=== PATIENT | male | born 1965 | race Caucasian/White ===

== ENCOUNTER 2017-09-15 22:38 | Observation (INO) | payer OTHER, MEDICAID ==
[~2017-09-15] VITALS: Ht 172.7 cm; Wt 77.5 kg
[~2017-09-15 22:38] MED LIST: ALBU8I INH; BENZ100 PO; CEFU1TAB43 PO; LISI10 PO; ZITHTAB6 PO
[2017-09-15 22:47] VITALS: BP 164/77; PULSE 68; RESP 20; TEMP 98.2; O2SAT 97
[2017-09-15] MEDS ORDERED: LISI10TA3 PO (22:49)
[2017-09-15] MEDS ORDERED: SODIUM CHLORIDE 0.9% FLUSH 10 ML FLUSH IVF PRN (23:15)
--- NOTE | 2017-09-15 23:29 | PD ---
HPI Chief Complaint: Chest Pain Time Seen by Provider: 23:06 Travel History International Travel<30 days: No Contact w/Intl Traveler<30days: No Traveled to known affect area: No History of Present Illness HPI 51 y/o male presents stating he has had chest pain intermittently over the past couple weeks. He denies any currently. He states he took a full aspirin today. He denies any other concurrent concerns. 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 He denies any prior routine cardiac workup. Quality is pressure. Severity is currently none. He denies specific modifying factors. He states when the episodes come they will get intense and got worse tonight. PFSH Past Medical History Cardiovascular Problems: No Diminished Hearing: No Genitourinary: No Hypertension: Yes Musculoskeletal: No Neurologic: No Reproductive: No Respiratory: Yes (PNEUMONIA THIS VISIT) Past Surgical History Eye Surgery: Yes (LASER SURGERY BILAT EYES) Oral Surgery: Yes (TONSILECTOMY- CHILDHOOD) Social History Alcohol Use: No Tobacco Use: Yes (1 PPD) Substance Use: No Allergies-Medications (Allergen,Severity, Reaction): Coded Allergies: No Known Allergies (Verified Adverse Reaction, Unknown, 09/15/17) Reported Meds & Prescriptions Reported Meds & Active Scripts Active Reported Lisinopril 10 Mg Tab 10 Mg PO DAILY Review of Systems Except as stated in HPI: all other systems reviewed are Neg Physical Exam Narrative GENERAL: 51-year-old male in no apparent distress SKIN: Focused skin assessment warm/dry. HEAD: Atraumatic. Normocephalic. EYES: No scleral icterus. No injection or drainage. ENT: No nasal bleeding or discharge. Mucous membranes pink and moist. NECK: Trachea midline. No JVD. CARDIOVASCULAR: Regular rate and rhythm. No murmur appreciated. RESPIRATORY: No accessory muscle use. Clear to auscultation. Breath sounds equal bilaterally. GASTROINTESTINAL: Abdomen soft, non-tender, nondistended. MUSCULOSKELETAL: No obvious deformities. No clubbing. No cyanosis. No edema. NEUROLOGICAL: Awake and alert. No obvious cranial nerve deficits. Motor grossly within normal limits. Normal speech. Data Data Last Documented VS Vital Signs Date Time Temp Pulse Resp B/P (MAP) Pulse Ox O2 Delivery O2 Flow Rate FiO2 09/15/17 23:09 69 95 Room Air 09/15/17 22:47 98.2 20 164/77 (106) Orders Orders Electrocardiogram (3/2/18 23:10) Ckmb (Isoenzyme) Profile (09/15/17 23:10) Complete Blood Count With Diff (09/15/17 23:10) Comprehensive Metabolic Panel (09/15/17 23:10) Magnesium (Mg) (09/15/17 23:10) Prothrombin Time / Inr (Pt) (09/15/17 23:10) Act Partial Throm Time (Ptt) (09/15/17 23:10) Troponin I (09/15/17 23:10) Chest, Single Ap (09/15/17 23:10) Ecg Monitoring (09/15/17 23:10) Bilateral Bp Monitoring (09/15/17 23:10) Iv Access Insert/Monitor (09/15/17 23:10) Oximetry (09/15/17 23:10) Sodium Chloride 0.9% Flush (Ns Flush) (09/15/17 23:15) CKMB (09/15/17 23:17) CKMB% (09/15/17 23:17) Admit Order (Ed Use Only) (09/16/17 00:33) Activity Bed Rest With Brp (09/16/17 00:33) Vital Signs (Adult) Q4H (09/16/17 00:33) Cardiac Rhythm .As Directed (09/16/17 00:33) Notify Dr: Other .PRN (09/16/17 00:33) Notify DrAlondra Parameters (09/16/17 00:33) Resp Oxygen Nasal Cannula (09/16/17 ) Ckmb (Isoenzyme) Profile (09/16/17 02:00) Ckmb (Isoenzyme) Profile (09/16/17 05:00) Troponin I (09/16/17 02:00) Troponin I (09/16/17 05:00) Electrocardiogram (09/16/17 02:00) Electrocardiogram (09/16/17 05:00) ^ Obtain (09/16/17 00:33) Sodium Chloride 0.9% Flush (Ns Flush) (09/16/17 00:45) Sodium Chloride 0.9% Flush (Ns Flush) (09/16/17 09:00) Back Sewer / Telemetry ROSALIND.Q8H (09/16/17 00:33) Labs Laboratory Tests Test 09/15/17 23:17 White Blood Count 11.3 TH/MM3 Red Blood Count 3.74 MIL/MM3 Hemoglobin 12.0 GM/DL Hematocrit 35.3 % Mean Corpuscular Volume 94.5 FL Mean Corpuscular Hemoglobin 32.1 PG Mean Corpuscular Hemoglobin Concent 34.0 % Red Cell Distribution Width 13.7 % Platelet Count 251 TH/MM3 Mean Platelet Volume 7.9 FL Neutrophils (%) (Auto) 57.5 % Lymphocytes (%) (Auto) 32.8 % Monocytes (%) (Auto) 6.0 % Eosinophils (%) (Auto) 3.1 % Basophils (%) (Auto) 0.6 % Neutrophils # (Auto) 6.5 TH/MM3 Lymphocytes # (Auto) 3.7 TH/MM3 Monocytes # (Auto) 0.7 TH/MM3 Eosinophils # (Auto) 0.3 TH/MM3 Basophils # (Auto) 0.1 TH/MM3 CBC Comment DIFF FINAL Differential Comment Prothrombin Time 10.3 SEC Prothromb Time International Ratio 1.0 RATIO Activated Partial Thromboplast Time 27.9 SEC Blood Urea Nitrogen 24 MG/DL Creatinine 1.51 MG/DL Random Glucose 97 MG/DL Total Protein 6.7 GM/DL Albumin 3.9 GM/DL Calcium Level 8.7 MG/DL Magnesium Level 1.8 MG/DL Alkaline Phosphatase 91 U/L Aspartate Amino Transf (AST/SGOT) 18 U/L Alanine Aminotransferase (ALT/SGPT) 13 U/L Total Bilirubin 0.2 MG/DL Sodium Level 136 MEQ/L Potassium Level 3.5 MEQ/L Chloride Level 99 MEQ/L Carbon Dioxide Level 30.6 MEQ/L Anion Gap 6 MEQ/L Estimat Glomerular Filtration Rate 49 ML/MIN Total Creatine Kinase 138 U/L Creatine Kinase MB 1.7 NG/ML Troponin I LESS THAN 0.02 NG/ML MDM Medical Decision Making Medical Screen Exam Complete: Yes Emergency Medical Condition: Yes Medical Record Reviewed: Yes (Past history confirmed) Interpretation(s) CBC & BMP Diagram 09/15/17 23:17 Total Protein 6.7, Albumin 3.9, Calcium Level 8.7, Magnesium Level 1.8, Alkaline Phosphatase 91, Aspartate Amino Transf (AST/SGOT) 18, Alanine Aminotransferase (ALT/SGPT) 13, Total Bilirubin 0.2 Differential Diagnosis Cardiac, musculoskeletal, gastritis Narrative Course We will check blood work, chest x-ray, EKG and monitor. Patient already took aspirin and pain-free currently ed workup no acute, agrees to facility technician observation Diagnosis Primary Impression: Chest pain Qualified Codes: R07.9 - Chest pain, unspecified Admitting Information Admitting Physician Requests: Observation Pat Lopez MD Sep 15, 2017 23:29
--- NOTE | 2017-09-15 23:56 | RADRPT ---
EXAM DATE/TIME: 09/15/2017 23:13 [facility] COMPARISON: CHEST SINGLE AP, August 07, 2014, 22:34. INDICATIONS : Episode of extreme chest pain which self resolved. MEDICAL HISTORY : Hypertension. SURGICAL HISTORY : None. ENCOUNTER: Initial ACUITY: 1 day PAIN SCORE: 0/10 LOCATION: Bilateral chest FINDINGS: A single view of the chest demonstrates the lungs to be symmetrically aerated without evidence of mas s, infiltrate or effusion. No evidence of pneumothorax. The cardiomediastinal contours are unremark able. Osseous structures are intact. CONCLUSION: The lungs are clear. Abdirashid Julien MD on September 15, 2017 at 23:55 Board Certified Radiologist. This report was verified electronically.
[2017-09-16] VITALS (7 sets, daily range): BP systolic 107–191; BP diastolic 63–106; PULSE 52–62; RESP 18–22; TEMP 97.4–98.2; O2SAT 94–98
[2017-09-16 00:08] LABS: AUTOMATED NEUTROPHIL # 6.5 TH/MM3 (1.8-7.7); BASOPHIL # 0.1 TH/MM3 (0-0.2); BASOPHIL % 0.6 % (0.0-2.0); EOSINOPHIL # 0.3 TH/MM3 (0-0.4); EOSINOPHIL % 3.1 % (0.0-4.0); HEMATOCRIT 35.3 % (39.0-51.0); LYMPH % 32.8 % (9.0-44.0); LYMPHOCYTE # 3.7 TH/MM3 (1.0-4.8); MEAN CELL VOLUME 94.5 FL (80.0-100.0); MEAN CORPUSCULAR HEMOGLOBIN 32.1 PG (27.0-34.0); MEAN PLATELET VOLUME 7.9 FL (7.0-11.0); MONOCYTE # 0.7 TH/MM3 (0-0.9); NEUT % 57.5 % (16.0-70.0); PLATELET COUNT 251 TH/MM3 (150-450); RED BLOOD COUNT 3.74 MIL/MM3 (4.50-5.90); RED CELL DISTRIBUTION WIDTH 13.7 % (11.6-17.2); WHITE BLOOD COUNT 11.3 TH/MM3 (4.0-11.0)
[2017-09-16 00:22] LABS: ALBUMIN 3.9 GM/DL (3.4-5.0); AST (GOT) 18 U/L (15-37); BICARBONATE 30.6 MEQ/L (21.0-32.0); BLOOD UREA NITROGEN 24 MG/DL (7-18); CALCIUM 8.7 MG/DL (8.5-10.1); CHLORIDE 99 MEQ/L (98-107); CREATININE 1.51 MG/DL (0.60-1.30); GLOMERULAR FILTRATION RATE 49 ML/MIN (>89); GLUCOSE,RANDOM 97 MG/DL (74-106); MAGNESIUM 1.8 MG/DL (1.5-2.5); PROTHROMBIN TIME - PATIENT 10.3 SEC (9.8-11.6); SODIUM (NA) 136 MEQ/L (136-145)
[2017-09-16 00:28] LABS: ALKALINE PHOSPHATASE 91 U/L (45-117); ALT (GPT) 13 U/L (12-78); TOTAL BILIRUBIN ADULT 0.2 MG/DL (0.2-1.0); TOTAL PROTEIN 6.7 GM/DL (6.4-8.2); TROPONIN I LESS THAN 0.02 NG/ML (0.02-0.05)
[2017-09-16] MEDS ORDERED: SODIUM CHLORIDE 0.9% FLUSH 10 ML FLUSH IV FLUSH PRN (00:45)
[2017-09-16 03:39] LABS: TROPONIN I LESS THAN 0.02 NG/ML (0.02-0.05)
[2017-09-16 05:59] LABS: TROPONIN I LESS THAN 0.02 NG/ML (0.02-0.05)
[2017-09-16] MEDS ORDERED: SODIUM CHLORIDE 0.9% FLUSH 10 ML FLUSH IV FLUSH SCH (09:00)
[2017-09-16] MEDS ORDERED: LISINOPRIL 10 MG TAB PO SCH (09:15)
--- NOTE | 2017-09-16 09:19 | HHI.HP ---
[facility] Service [facility] Primary Care Physician Unknown Admission Diagnosis Chest pain Diagnoses: Chief Complaint: Chest pain Travel History International Travel<30 Days: No Contact w/Intl Traveler <30 Da: No Traveled to Known Affected Are: No History of Present Illness This is a pleasant 51-year-old male patient with a known medical history of hypertension and optic atrophy who presented to the ED with complaints of chest pain. Patient states that he has had intermittent chest pain for the last 2 months coming and going randomly with no aggravating or relieving factors. Patient states that last evening while walking the dog he developed a midsternal chest tightness that radiated to his left chest, that lasted 15 seconds and then randomly went away. He states that the severity last evening pain was much worse than his prior episodes. He states the pain was rated a 10 out of 10 at its worst on pain scale, admits to associated dizziness, diaphoresis and shortness of breath. Denies any nausea or vomiting. Patient does state that the pain radiated up his left neck and left arm. He denies any aggravating factors. Patient does not follow with a management liaison or PCP. Denies any recent illness including fever, chills, cough, vomiting, nausea, vomiting, diarrhea dysuria. Patient states that these episodes have been occurring at least weekly. His blood pressure is elevated upon presentation, states that he has not been compliant with his lisinopril, states that he has been taking his friend's hypertensive medications intermittently. EKG showing sinus bradycardia, controlled heart rate, no ST changes. Chest x-ray negative. Troponins flat. Does show some ABELARDO on presentation creatinine 1.5. White blood cells 11.3. Denies ever having a previous stress test in the past. Review of Systems Constitutional: COMPLAINS OF: Diaphoretic episodes, DENIES: Fatigue, Fever, Chills Eyes: COMPLAINS OF: Vision loss (Chronic), DENIES: Blurred vision, Diplopia Respiratory: DENIES: Cough, Shortness of breath Cardiovascular: COMPLAINS OF: Chest pain, Palpitations Gastrointestinal: DENIES: Abdominal pain, Black stools, Bloody stools, Constipation, Diarrhea, Nausea, Vomiting Immunologic/allergic: DENIES: Eczema Neurologic: DENIES: Abnormal gait Psychiatric: COMPLAINS OF: Anxiety Except as stated in HPI: all other systems reviewed are Neg Past Family Social History Past Medical History Hypertension Optic atrophy Past Surgical History Bilateral laser surgery on ice Tonsillectomy Reported Medications Active Reported Lisinopril 10 Mg Tab 10 Mg PO DAILY Allergies: Coded Allergies: No Known Allergies (Verified Allergy, Unknown, 09/16/17) Active Ordered Medications Current Medications Medications (Trade) Dose Ordered Sig/Jeanne Route Start Time Stop Time Status Last Admin (NS Flush) 2 ml UNSCH PRN IVF 09/15/17 23:15 (NS Flush) 2 ml UNSCH PRN IV FLUSH 09/16/17 00:45 (NS Flush) 2 ml BID IV FLUSH 09/16/17 09:00 09/16/17 08:58 Family History Denies any significant family medical history of cardiovascular disease. Social History Does admit to 1 pack per day cigarette smoking since his teen years, denies any alcohol use and does admit to occasional marijuana use. Physical Exam Vital Signs Vital Signs Date Time Temp Pulse Resp B/P (MAP) Pulse Ox O2 Delivery O2 Flow Rate FiO2 09/16/17 07:47 98.2 52 18 160/85 (110) 94 09/16/17 02:32 98.2 58 18 175/91 (119) 97 09/16/17 00:59 96 09/15/17 23:09 69 95 Room Air 09/15/17 22:47 98.2 68 20 164/77 (106) 97 Room Air Physical Exam GENERAL: Well-developed, well-nourished patient in [facility]. SKIN: Warm and dry. No rash. HEAD: Normocephalic. Atraumatic. EYES: Pupils equal and round. No scleral icterus. No injection or drainage. History of optic atrophy. ENT: No nasal bleeding or discharge. Mucous membranes pink and moist. NECK: Supple. Trachea midline. CARDIOVASCULAR: Regular rate and rhythm. S1, S2 noted. No murmur appreciated. No chest pain to palpation. RESPIRATORY: No accessory muscle use. Clear to auscultation. Breath sounds equal bilaterally. GASTROINTESTINAL: Abdomen soft, non-tender, nondistended. Normoactive bowel sounds x4. MUSCULOSKELETAL: No obvious deformities. Extremities without clubbing, cyanosis , or edema. NEUROLOGICAL: Awake and alert. No obvious cranial nerve deficits. Motor grossly within normal limits. 5/5 muscle strength in bilateral upper and lower extremities. Normal speech. PSYCHIATRIC: Appropriate mood and affect; insight and judgment normal. Laboratory Laboratory Tests Test 09/15/17 23:17 09/16/17 02:40 09/16/17 05:10 White Blood Count 11.3 Red Blood Count 3.74 Hemoglobin 12.0 Hematocrit 35.3 Mean Corpuscular Volume 94.5 Mean Corpuscular Hemoglobin 32.1 Mean Corpuscular Hemoglobin Concent 34.0 Red Cell Distribution Width 13.7 Platelet Count 251 Mean Platelet Volume 7.9 Neutrophils (%) (Auto) 57.5 Lymphocytes (%) (Auto) 32.8 Monocytes (%) (Auto) 6.0 Eosinophils (%) (Auto) 3.1 Basophils (%) (Auto) 0.6 Neutrophils # (Auto) 6.5 Lymphocytes # (Auto) 3.7 Monocytes # (Auto) 0.7 Eosinophils # (Auto) 0.3 Basophils # (Auto) 0.1 CBC Comment DIFF FINAL Differential Comment Prothrombin Time 10.3 Prothromb Time International Ratio 1.0 Activated Partial Thromboplast Time 27.9 Blood Urea Nitrogen 24 Creatinine 1.51 Random Glucose 97 Total Protein 6.7 Albumin 3.9 Calcium Level 8.7 Magnesium Level 1.8 Alkaline Phosphatase 91 Aspartate Amino Transf (AST/SGOT) 18 Alanine Aminotransferase (ALT/SGPT) 13 Total Bilirubin 0.2 Sodium Level 136 Potassium Level 3.5 Chloride Level 99 Carbon Dioxide Level 30.6 Anion Gap 6 Estimat Glomerular Filtration Rate 49 Total Creatine Kinase 138 122 110 Creatine Kinase MB 1.7 1.5 1.4 Troponin I LESS THAN 0.02 LESS THAN 0.02 LESS THAN 0.02 Result Diagram: 09/15/17231609/15/172316 Imaging Last Impressions Chest X-Ray 09/15/172309 Signed Impressions: Service Date/Time: Friday, September 15, 2017 23:13 - CONCLUSION: The lungs are clear. Abdirashid Julien MD Septic Shock Reassessment Septic shock perfusion: reassessment completed Caprini VTE Risk Assessment Caprini VTE Risk Assessment: No/Low Risk (score <= 1) Caprini Risk Assessment Model Point Value = 1 Point Value = 2 Point Value = 3 Point Value = 5 Age 41-60 Minor surgery BMI > 25 kg/m2 Swollen legs Varicose veins or History of unexplained or recurrent spontaneous Oral contraceptives or hormone replacement Sepsis (< 1 month) Serious lung disease, including pneumonia (< 1 month) Abnormal pulmonary function Acute myocardial infarction Congestive heart failure (< 1 month) History of inflammatory bowel disease Medical patient at bed rest Age 61-74 Arthroscopic surgery Major open surgery (> 45 min) Laparoscopic surgery (> 45 min) Malignancy Confined to bed (> 72 hours) Immobilizing plaster cast Central venous access Age >= 75 History of VTE Family history of VTE Factor V Leiden Prothrombin [id number] Lupus anticoagulant Anticardiolipin antibodies Elevated serum homocysteine Heparin-induced thrombocytopenia Other congenital or acquired thrombophilia Stroke (< 1 month) Elective arthroplasty Hip, pelvis, or leg fracture Acute spinal cord injury (< 1 month) Prophylaxis Regimen Total Risk Factor Score Risk Level Prophylaxis Regimen 0-1 Low Early ambulation 2 Moderate Order ONE of the following: *Sequential Compression Device (SCD) *Heparin 5000 units SQ BID 3-4 Higher Order ONE of the following medications: *Heparin 5000 units SQ TID *Enoxaparin/Lovenox 40 mg SQ daily (WT < 150 kg, CrCl > 30 mL/min) *Enoxaparin/Lovenox 30 mg SQ daily (WT < 150 kg, CrCl > 10-29 mL/min) *Enoxaparin/Lovenox 30 mg SQ BID (WT < 150 kg, CrCl > 30 mL/min) AND/OR *Sequential Compression Device (SCD) 5 or more Highest Order ONE of the following medications: *Heparin 5000 units SQ TID (Preferred with Epidurals) *Enoxaparin/Lovenox 40 mg SQ daily (WT < 150 kg, CrCl > 30 mL/min) *Enoxaparin/Lovenox 30 mg SQ daily (WT < 150 kg, CrCl > 10-29 mL/min) *Enoxaparin/Lovenox 30 mg SQ BID (WT < 150 kg, CrCl > 30 mL/min) AND *Sequential Compression Device (SCD) Assessment and Plan Assessment and Plan This is a pleasant 51-year-old male patient with a known medical history of hypertension and optic atrophy who presented to the ED with complaints of chest pain. Chest pain Patient has been admitted to the chest pain center for observation. Serial EKGs and serial troponins have been ordered for ruling out ACS purposes. Serial troponins are flat. EKG reviewed showing sinus bradycardia with no ST changes. Heart rate controlled. Chest x-ray reviewed, no acute disease. CBC and BMP essentially unremarkable. Cardiac telemetry overnight, no reports of any arrhythmias. Chest pain has now resolved. ACS has been ruled out per protocol. Patient will undergo a cardiac treadmill stress test to further rule out any ischemia. Further treatment plan and hospitalization will depend on cardiac stress test results. Follow. Patient is stable at this time and agreeable to the plan. Hypertension: Patient has been noncompliant with medication, has not seen a PCP for over a year. States he was last prescribed lisinopril. Will hold CRISTIAN due to acute on chronic ABELARDO. Start Amlodipine. Continue to monitor BP trends. Acute on chronic kidney injury suspect secondary to long-standing uncontrolled hypertension: Creatinine 1.5 on presentation. No recent baseline. Patient denies any kidney disease. Will start on IVF. DVT prophylaxis: Ambulation. Siena Mccain Sep 16, 2017 09:19
[2017-09-16] MEDS ORDERED: amLODIPine BESYLATE 5 MG TAB PO SCH (10:00)
[2017-09-16] MEDS ORDERED: SODIUM CHLOR 0.9% 1000 ML INJ 1,000 ML IV SCH (10:15)
--- NOTE | 2017-09-16 11:19 | PD.CARD.PN ---
Subjective Subjective Remarks Patient's chart reviewed, discussed with nurse practitioner, and seen and examined personally. I am in agreement with the documentation. Care plan was discussed with nurse practitioner after reviewing the results of this testing. He will be discharged with changes in medication as discussed. Objective Medications Current Medications Medications (Trade) Dose Ordered Sig/Jeanne Route Start Time Stop Time Status Last Admin (NS Flush) 2 ml UNSCH PRN IVF 09/15/17 23:15 (NS Flush) 2 ml UNSCH PRN IV FLUSH 09/16/17 00:45 (NS Flush) 2 ml BID IV FLUSH 09/16/17 09:00 09/16/17 08:58 (Norvasc) 5 mg DAILY PO 09/16/17 10:00 Sodium Chloride 1,000 ml @ 84 mls/hr [id number] IV 09/16/17 10:15 Vital Signs / I&O Vital Signs Date Time Temp Pulse Resp B/P (MAP) Pulse Ox O2 Delivery O2 Flow Rate FiO2 09/16/17 07:47 98.2 52 18 160/85 (110) 94 09/16/17 02:32 98.2 58 18 175/91 (119) 97 09/16/17 00:59 96 09/15/17 23:09 69 95 Room Air 09/15/17 22:47 98.2 68 20 164/77 (106) 97 Room Air Physical Exam Well-nourished well-developed gentleman sitting on the side of the bed with no distress. Chest is clear to auscultation with no rales wheezes or rhonchi Regular sinus rhythm with no gallops rubs or murmurs Laboratory Laboratory Tests Test 09/15/17 23:17 09/16/17 02:40 09/16/17 05:10 White Blood Count 11.3 TH/MM3 Red Blood Count 3.74 MIL/MM3 Hemoglobin 12.0 GM/DL Hematocrit 35.3 % Mean Corpuscular Volume 94.5 FL Mean Corpuscular Hemoglobin 32.1 PG Mean Corpuscular Hemoglobin Concent 34.0 % Red Cell Distribution Width 13.7 % Platelet Count 251 TH/MM3 Mean Platelet Volume 7.9 FL Neutrophils (%) (Auto) 57.5 % Lymphocytes (%) (Auto) 32.8 % Monocytes (%) (Auto) 6.0 % Eosinophils (%) (Auto) 3.1 % Basophils (%) (Auto) 0.6 % Neutrophils # (Auto) 6.5 TH/MM3 Lymphocytes # (Auto) 3.7 TH/MM3 Monocytes # (Auto) 0.7 TH/MM3 Eosinophils # (Auto) 0.3 TH/MM3 Basophils # (Auto) 0.1 TH/MM3 CBC Comment DIFF FINAL Differential Comment Prothrombin Time 10.3 SEC Prothromb Time International Ratio 1.0 RATIO Activated Partial Thromboplast Time 27.9 SEC Blood Urea Nitrogen 24 MG/DL Creatinine 1.51 MG/DL Random Glucose 97 MG/DL Total Protein 6.7 GM/DL Albumin 3.9 GM/DL Calcium Level 8.7 MG/DL Magnesium Level 1.8 MG/DL Alkaline Phosphatase 91 U/L Aspartate Amino Transf (AST/SGOT) 18 U/L Alanine Aminotransferase (ALT/SGPT) 13 U/L Total Bilirubin 0.2 MG/DL Sodium Level 136 MEQ/L Potassium Level 3.5 MEQ/L Chloride Level 99 MEQ/L Carbon Dioxide Level 30.6 MEQ/L Anion Gap 6 MEQ/L Estimat Glomerular Filtration Rate 49 ML/MIN Total Creatine Kinase 138 U/L 122 U/L 110 U/L Creatine Kinase MB 1.7 NG/ML 1.5 NG/ML 1.4 NG/ML Troponin I LESS THAN 0.02 NG/ML LESS THAN 0.02 NG/ML LESS THAN 0.02 NG/ML Imaging Last 24 hours Impressions Chest X-Ray 09/15/17 3900 Signed Impressions: Service Date/Time: Friday, September 15, 2017 23:13 - CONCLUSION: The lungs are clear. Abdirashid Julien MD Assessment and Plan Problem List: (1) Chest pain ICD Codes: R07.9 - Chest pain, unspecified Status: Acute Plan: Patient was ruled out using standard ACLS protocol and underwent exercise stress testing which was negative for ischemia He was noted to have mild renal failure and his hypertensive drugs were evaluated with consideration of cost effectiveness and side effects He will be placed on a calcium channel renan Norvasc I discussed with him the need to be reliable in taking all of his medications and suggested use of a weekly pill container He has Medicaid he is encouraged to follow-up on a regular basis with an outpatient physician Discussed Condition With Follow-up medications and follow-up were discussed with the patient at some length Problem Qualifiers (1) Chest pain: Qualified Codes: R07.9 - Chest pain, unspecified Evert Goyal MD Sep 16, 2017 11:19
--- NOTE | 2017-09-16 11:21 | HHI.DCPOC ---
Discharge Care Plan Diagnosis: (1) Chest pain (2) Hypertension Goals to Promote Your Health * To prevent worsening of your condition and complications * To maintain your health at the optimal level Directions to Meet Your Goals Take your medications as prescribed Follow your dietary instruction Follow activity as directed Keep your appointments as scheduled Take your immunizations and boosters as scheduled If your symptoms worsen call your PCP, if no PCP go to Urgent Care Center or Emergency Room Smoking is Dangerous to Your Health. Avoid second hand smoke Call the 24-hour hour crisis hotline for domestic abuse at Siena Mccain Sep 16, 2017 11:21
[2017-09-16] MEDS ORDERED: AMLO5 PO (11:22)
--- NOTE | 2017-09-16 13:16 | EKG ---
Date Performed: 09/16/2017 Time Performed: 05:25:35 PTAGE: 51 years EKG: SINUS BRADYCARDIA BORDERLINE ECG NO CHANGE PREVIOUS TRACING : 09/16/2017 02.38 DOCTOR: Evert Goyal Interpretating Date/Time 09/16/2017 13:15:38
--- NOTE | 2017-09-16 13:17 | EKG ---
Date Performed: 09/16/2017 Time Performed: 02:38:57 PTAGE: 51 years EKG: SINUS BRADYCARDIA NS STT CHANGES BUT LARGLY UNCHANGED BORDERLINE ECG PREVIOUS TRACING : 08/07/2014 22.48 DOCTOR: Evert Goyal Interpretating Date/Time 09/16/2017 13:17:18
--- NOTE | 2017-09-16 13:28 | EKG ---
Date Performed: 09/15/2017 Time Performed: 23:01:52 PTAGE: 51 years EKG: Sinus rhythm NORMAL ECG RATE HAS SLOWED NO PREVIOUS TRACING DOCTOR: Evert Goyal Interpretating Date/Time 09/16/2017 13:26:33
[2017-09-16] MEDS ORDERED: amLODIPine BESYLATE 5 MG TAB PO ONE (13:30)
--- NOTE | 2017-09-16 16:47 | TR ---
Date Performed: 09/16/2017 Time Performed: 10:39:33 DOCTOR: Evert Goyal DRUG LIST: CLINICAL HISTORY: REASON FOR TEST: REASON FOR ENDING: OBSERVATION: CONCLUSION: Anthony protocol performed test stopped secondary to leg fatigue. No reproducible ches t discomfort. Good exercise tolerance. Normal BP response. Recovery quick and unremarkable. No ST makenna nges to indicate any diagnostic ischemia.Maximum JP=494 Target QJ=343 Maximum ME=641/64 Total Exercis e Time=9:20 COMMENTS:
== END 2017-09-16 14:46 | disposition home or self-care (01) ==
LOC: NEPC 22:38 → NEDA 09-16 00:35 → NEPHCDU 09-16 02:22
PROVIDERS: ADMIT Internal Medicine Cardiovascular Disease; ATTEND Internal Medicine Cardiovascular Disease
DX: R07.89 Other chest pain (principal); R06.02 Shortness of breath; R42 Dizziness and giddiness; R61 Generalized hyperhidrosis; R00.1 Bradycardia, unspecified; I12.9 Hypertensive chronic kidney disease with stage 1 through stage 4 chronic kidney disease, or unspecified chronic kidney disease; N18.9 Chronic kidney disease, unspecified; H47.20 Unspecified optic atrophy; N17.9 Acute kidney failure, unspecified; F17.210 Nicotine dependence, cigarettes, uncomplicated; Z91.14 Patient's other noncompliance with medication regimen
CPT/HCPCS: 71045; 80053; 82550; 82552; 83735; 84484; 85025; 85610; 85730; 93005; 93017; 96360; 99285; G0378; J7030